=== PATIENT | male | born 1995 | race Caucasian/White ===

== ENCOUNTER 2017-08-09 13:15 | Emergency (ER) | payer OTHER ==
[~2017-08-09] VITALS: Ht 185.4 cm; Wt 81.7 kg
[~2017-08-09 13:15] MED LIST: BENADRYL25 MG PO; HYDROCODONE-AP1 EAC6; SODIUM BICARBO650 M3 PO; ULTRAM 50MG TAB50 MG PO
[2017-08-09] MEDS ORDERED: KEFLEX500 M1 PO (13:36)
[2017-08-09 14:03] VITALS: BP 119/67
== END 2017-08-09 14:05 | disposition home or self-care (01) ==
LOC: M.ERS 13:15
DX: S61.213A Laceration without foreign body of left middle finger without damage to nail, initial encounter (principal); W26.8XXA Contact with other sharp object(s), not elsewhere classified, initial encounter; Y93.89 Activity, other specified; Y92.89 Other specified places as the place of occurrence of the external cause; Y99.8 Other external cause status